=== PATIENT | female | born 1990 | race Caucasian/White ===

== ENCOUNTER 2017-06-25 19:22 | Emergency (ER) | payer BC ==
[~2017-06-25] VITALS: Ht 167.6 cm; Wt 63.5 kg
[2017-06-25 19:55] VITALS: BP 133/78
== END 2017-06-25 20:33 | disposition home or self-care (01) ==
LOC: ER 19:22
DX: J03.90 Acute tonsillitis, unspecified (principal); H66.91 Otitis media, unspecified, right ear; J06.9 Acute upper respiratory infection, unspecified
CPT/HCPCS: 99283; A4606; Z7610